=== PATIENT | male | born 1955 | race Caucasian/White ===

== ENCOUNTER 2018-12-26 12:30 | Day surgery (SDC) | payer OTHER, SELFPAY ==
[~2018-12-26] VITALS: Ht 182.9 cm; Wt 113.3 kg
[~2018-12-26 12:30] MED LIST: BUPIVACAINE/PF 0.5% ONE; LIDOCAINE 1%, 20ML ONE
[2018-12-26] MEDS ORDERED: IBUP-1223 PO (13:07)
[2018-12-26] MEDS ORDERED: LISI-167 PO (13:07)
[2018-12-26] MEDS ORDERED: OMEP20TA62 PO (13:07)
[2018-12-26] MEDS ORDERED: METF500T17 PO (13:07)
[2018-12-26] MEDS ORDERED: ATOR40TA78 PO (13:07)
[2018-12-26] MEDS ORDERED: SPIR25TA5 PO (13:07)
[2018-12-26 13:08] VITALS: BP 134/88
[2018-12-26] MEDS ORDERED: LACTATED RINGERS 1,000 ML IV SCH (13:08)
[2018-12-26] MEDS ORDERED: PLEASE ENTER HEIGHT AND WEIGHT MC SCH (13:30)
[2018-12-26] MEDS ORDERED: FENTANYL PF 100 MCG/2ML ONE ×2 (13:57→15:49)
[2018-12-26] MEDS ORDERED: MIDAZOLAM 1 MG/ML, 2ML ONE (13:57)
[2018-12-26 14:08] LABS: ALANINE AMINOTRANSFERASE 35 U/L (12-78); ALBUMIN 4.2 g/dL (3.4-5.0); ANION GAP 5 mmol/L (5-15); CALCIUM 9.6 mg/dL (8.5-10.1); CHLORIDE 107 mmol/L (98-107)
[2018-12-26 14:11] LABS: ALKALINE PHOSPHATASE 61 U/L (45-117); BILIRUBIN,TOTAL 0.8 mg/dL (0.2-1.0); CREATININE 1.09 mg/dL (0.7-1.3); TOTAL PROTEIN 7.9 g/dL (6.4-8.2)
[2018-12-26] MEDS ORDERED: ONDANSETRON 2MG/ML, 2ML ONE (15:25)
[2018-12-26] MEDS ORDERED: DEXAMETHASONE 4 MG/ML, 1ML ONE (15:25)
[2018-12-26] MEDS ORDERED: PROPOFOL 10 MG/ML, 20ML ONE (15:25)
[2018-12-26] MEDS ORDERED: CEFAZOLIN 1,000 MG ONE (15:25)
[2018-12-26] MEDS: FENTANYL PF 100 MCG/2ML IV PRN ×2 (15:42→16:11)
[2018-12-26] MEDS ORDERED: HYDROmorphone 2 MG/ML, 1ML ONE (15:50)
[2018-12-26] MEDS ORDERED: OXYcodone 5 MG/5 ML ORAL.SOL UDC ONE (15:50)
[2018-12-26] MEDS ORDERED: PROMETHAZINE 25 MG/ML, 1ML IV PRN (16:00)
[2018-12-26] MEDS ORDERED: OXYcodone 5 MG/5 ML ORAL.SOL UDC PO PRN ×2 (16:00→16:30)
[2018-12-26] MEDS ORDERED: hydrALAzine 20 MG/ML, 1ML IV PRN (16:00)
[2018-12-26] MEDS ORDERED: ONDANSETRON 2MG/ML, 2ML IV PRN (16:00)
[2018-12-26] MEDS ORDERED: EPHEDRINE 50 MG/ML, 1ML IVPush PRN (16:00)
[2018-12-26] MEDS ORDERED: MEPERIDINE/PF 25MG/0.5ML IVPush PRN (16:00)
[2018-12-26] MEDS ORDERED: MIDAZOLAM 1 MG/ML, 2ML IV PRN (16:00)
[2018-12-26] MEDS ORDERED: ALBUTEROL/IPRATROPIUM 2.5MG/0.5MG, 3 ML NPPB PRN (16:00)
[2018-12-26] MEDS: HYDROmorphone 2 MG/ML, 1ML IVPush PRN ×3 (16:11→16:45)
[2018-12-26] MEDS ORDERED: ALBUTEROL/IPRATROPIUM 2.5MG/0.5MG, 3 ML ONE (16:14)
[2018-12-26] MEDS ORDERED: KETOROLAC 30 MG/1 ML IVPush ONE (16:30)
[2018-12-26] MEDS ORDERED: KETOROLAC 30 MG/1 ML ONE (16:33)
== END 2018-12-26 20:35 | disposition home or self-care (01) ==
LOC: OUT 12:30 → 4NOR 18:48 → OUT 20:35
PROVIDERS: ATTEND Orthopaedic Surgery
DX: S83.231A Complex tear of medial meniscus, current injury, right knee, initial encounter (principal); S83.281A Other tear of lateral meniscus, current injury, right knee, initial encounter; M94.261 Chondromalacia, right knee; I10 Essential (primary) hypertension; F15.90 Other stimulant use, unspecified, uncomplicated; E11.9 Type 2 diabetes mellitus without complications; E78.5 Hyperlipidemia, unspecified; E66.9 Obesity, unspecified; Z68.34 Body mass index [BMI] 34.0-34.9, adult; X58.XXXA Exposure to other specified factors, initial encounter; Y93.89 Activity, other specified; Y92.89 Other specified places as the place of occurrence of the external cause; Y99.8 Other external cause status; Z86.73 Personal history of transient ischemic attack (TIA), and cerebral infarction without residual deficits; Z87.891 Personal history of nicotine dependence; Z79.84 Long term (current) use of oral hypoglycemic drugs
CPT/HCPCS: 29880; 36415; 71045; 80053; 93005; 94640; J0690; J1100; J1170; J1885; J2250; J2405; J2704; J3010; J7120; J7620; G0378